=== PATIENT | female | born 1990 | race Caucasian/White ===

== ENCOUNTER 2019-06-02 00:20 | Inpatient (IN) | payer BC, OTHER ==
[2019-06-02] MEDS ORDERED: LIDOCAINE 0.5% (PF) 5 MG/ML (50 ML SDV) SQ PRN (00:47)
[2019-06-02] MEDS ORDERED: METHYLERGONOVINE 0.2 MG/ML 1 ML AMP IM PRN (00:47)
[2019-06-02] MEDS ORDERED: TERBUTALINE 1 MG/ML VIAL SQ PRN (00:47)
[2019-06-02] MEDS ORDERED: CARBOPROST TROMETHAMINE 250 MCG/ML 1 ML AMP IM PRN (00:47)
[2019-06-02] MEDS ORDERED: OXYTOCIN 10 UNIT/ML 1 ML VIAL IM PRN (00:47)
[2019-06-02] MEDS: LACTATED RINGERS 1,000 ML IV SCH ×4 (00:48→10:23)
[2019-06-02 00:55] VITALS: BMI 39.1
[2019-06-02] MEDS ORDERED: OXYTOCIN 30 UNITS/500 ML NS 30 UNIT in SALINE 1 500ML.BAG IV SCH (01:00)
[2019-06-02 01:26] LABS: Basophils # (A) 0.1 k/uL (0-0.2); Basophils % (A) 1 %; Eosinophils # (A) 0.1 k/uL (0-0.7); Eosinophils % (A) 1 %; HGB 11.3 gm/dL (11.4-16.0); Lymphocytes # (A) 4.6 k/uL (1.0-4.8); Lymphocytes % (A) 32 %; MCH 27.8 pg (25.0-35.0); MCHC 33.4 g/dL (31.0-37.0); MCV 83.3 fL (80.0-100.0); Mean Platelet Volume 7.2; Monocytes # (A) 0.8 k/uL (0-1.0); Monocytes % (A) 6 %; Neutrophils # (A) 8.7 k/uL (1.3-7.7); Neutrophils % (A) 60 %; Platelet Count 354 k/uL (150-450); RBC 4.08 m/uL (3.80-5.40); RDW 15.2 % (11.5-15.5); WBC 14.5 k/uL (3.8-10.6)
[2019-06-02] MEDS ORDERED: BUTORPHANOL 1 MG/ML 1 ML VIAL IV PRN (01:41)
[2019-06-02] MEDS ORDERED: CITRIC ACID-SODIUM CITRATE 15 ML CUP PO ONE (06:46)
--- NOTE | 2019-06-02 06:53 | P.HPOB ---
History of Present Illness H&P Date: 06/02/19 Chief Complaint: My water broke at 11:00 last night This is a 28-year-old white female 1 para 0 EDC 05/27/2019 at 40-6/7 weeks' gestation. Patient was scheduled for induction today for postdates , but came in early spontaneous labor with spontaneous amniorrhexis, clear fluid. Uterine contractions mild and irregular. Fetus active throughout the . She denied vaginal bleeding. Past medical history is significant for heterozygous MTHFR mutation. Past surgical history cholelithiasis, wisdom teeth extracted. Current medications vitamins daily, baby aspirin daily. ALLERGIES patient states are to erythromycin to which reports hives, as well as seasonal ALLERGIES. Family history significant for CHF, hypertension, diabetes, positive MTHFR mutation. Obstetric history significant for negative group B strep cultures. Blood type O positive. Pap smear, gonorrhea and chlamydia cultures, urine culture, hepatitis B surface antigen, all negative. One-hour Glucola elevated, 3 hour GTT within normal limits. Rubella status immune. On exam patient is 5 foot 4 inches, 228 pounds, blood pressure 121/64. General physical exam is within normal limits. Chest is clear in all beltrán. Extremities reveal no edema. Cervix is 4 cm dilated, 70% effaced, -2 station, vertex presentation, obvious fore bag noted. Rupture of this fore bag reveals clear fluid. Internal scalp lead is applied. heart rate is consistent with reactive NST. Impression: 40-6/7 weeks intrauterine , in early active labor. All signs reassuring. Plan: Oxytocin per hospital protocol. Close maternal and surveillance. Analgesic options reviewed with the patient, she is electing to proceed with epidural. Anesthesia staff aware. Anticipate normal spontaneous vaginal delivery. Review of Systems Constitutional: Reports as per HPI Past Medical History Additional Past Medical History / Comment(s): Heterozygous for MTHFR mutation History of Any Multi-Drug Resistant Organisms: None Reported Past Surgical History: Cholecystectomy Past Anesthesia/Blood Transfusion Reactions: No Reported Reaction Past Psychological History: No Psychological Hx Reported Smoking Status: Never smoker Past Alcohol Use History: None Reported Past Drug Use History: None Reported - Past Family History Mother Family Medical History: Diabetes Mellitus Father Family Medical History: Diabetes Mellitus Additional Family Medical History / Comment(s): arrythmia, pacemaker Medications and Allergies Home Medications Medication Instructions Recorded Confirmed Type Aspirin [[place] Aspirin EC] 81 mg PO DAILY 06/02/19 06/02/19 History Ferrous Sulfate [Feosol] 325 mg PO DAILY 06/02/19 06/02/19 History Pnv,Calcium 72/Iron/Folic Acid 1 each PO DAILY 06/02/19 06/02/19 History [ Plus Tablet] Allergies Allergy/AdvReac Type Severity Reaction Status Date / Time erythromycin base Allergy Intermediate Rash/Hives Verified 06/02/19 00:45 Exam Vital Signs Temp Pulse Resp BP Pulse Ox 06/02/19 00:47 97.1 F L 89 16 121/64 99 Intake and Output 06/01/19 06/01/19 06/02/19 14:59 22:59 06:59 Other: # Voids 2 Weight 103.419 kg See dictation under HPI Results Result Diagrams: 06/02/19 00:48 Abnormal Lab Results - Last 24 Hours (Table) 06/02/19 Range/Units 00:48 WBC 14.5 H (3.8-10.6) k/uL Hgb 11.3 L (11.4-16.0) gm/dL Neutrophils # 8.7 H (1.3-7.7) k/uL Assessment and Plan Assessment: 40-6/7 weeks intrauterine , early spontaneous labor. All signs reassuring. Plan: Analgesic options reviewed. Patient electing to proceed with epidural, anesthesia aware. Oxytocin per hospital protocol. Anticipate normal sponta neous vaginal delivery. Time with Patient: Less than 30
[2019-06-02] MEDS ORDERED: ROPIVACAINE 5MG/ML 20ML VIAL ONE (07:25)
[2019-06-02] MEDS ORDERED: fentaNYL (PF) 50 MCG/ML 5 ML AMP ONE (07:25)
[2019-06-02] MEDS ORDERED: SODIUM CHLORIDE 0.9% 100 ML BAG ONE (07:25)
[2019-06-02] MEDS ORDERED: LANOLIN CREAM 5 GM TUBE TOPICAL PRN (17:04)
[2019-06-02] MEDS ORDERED: diphenhydrAMINE 25 MG CAP PO PRN (17:04)
[2019-06-02] MEDS ORDERED: SIMETHICONE 80 MG CHEWABLE PO PRN (17:04)
[2019-06-02] MEDS ORDERED: BENZOCAINE/MENTHOL SPRAY 1 GM/SPRAY AEROSOL TOPICAL PRN (17:04)
[2019-06-02] MEDS ORDERED: diphenhydrAMINE 50 MG CAP PO PRN (17:04)
[2019-06-02] MEDS ORDERED: WITCH HAZEL 1 EACH MED..PAD TOPICAL PRN (17:04)
[2019-06-02] MEDS ORDERED: ZOLPIDEM 5 MG TAB PO PRN (17:04)
[2019-06-02] MEDS ORDERED: HYDROCORTISONE 2.5% RECTAL CREAM 30 GM TUBE RECTAL PRN (17:04)
[2019-06-02] MEDS ORDERED: diphenhydrAMINE 50 MG/ML 1 ML VIAL IVP PRN ×2 (17:04)
--- NOTE | 2019-06-02 17:04 | P.PROBDLV ---
Vaginal Delivery Note - . Vaginal Delivery Note: This is a 28-year-old white female 1 para 0 EDC 05/27/2019 at 40-6/7 weeks' gestation. Patient presented with spontaneous amniorrhexis which occurred at home, clear fluid. She was originally scheduled for induction due to postdates . Cervix on admission was 3 cm dilated. Rubella status immune. Blood type O positive. Group B strep cultures negative. Positive heterozous for MTHFR. Please see dictated history and physical for details. Oxytocin was started and titrated per hospital protocol. Epidural was placed per the patient's request. She progressed through the first stage of labor and ultimately became completely dilated. Good station was noted in the second stage of labor. heart rate did change baseline to the 160s, with occasional late decelerations. However, overall excellent txzh-en-elxd variability was noted and again good progress was being made in the second stage of labor. Perineal body was prepped and draped in usual sterile fashion. 's head delivered occiput anterior and restituted accordingly. There was a nuchal cord 1 that was reduced on the perineal body. The left or anterior shoulder was delivered from underneath the pubic symphysis at which time the oropharynx, nasopharynx, and external nares were bulb suctioned. Patient was officially delivered of a liveborn female infant at 1634 hours. Umbilical cord was doubly clamped and ligated, she was handed to waiting nurses for evaluation where scores of 8 and 9 at one and 5 minutes respectively were given. At this time the fundus is massaged. The placenta delivered spontaneously, it was inspected and noted to be intact with trivascular cord at 1637 hours. Infant weighed 6 lbs. 13 oz. or 3090 g. The perineal body, cervix, vagina, periurethral and perirectal areas are all carefully inspected. There is a right labial laceration, shallow and first-degree, repaired with 3-0 Vicryl in a running fashion. Methergine was given for her initial brisk bleeding, excellent and immediate results are noted. Total estimated blood loss 300 mL's. All sponge needle and enhancement counts are correct at the end of the procedure. Patient and her family are allowed to begin the bonding experience in the LDR.
[2019-06-02] MEDS ORDERED: OXYTOCIN 20 UNITS/1000 ML NS 1,000 ML IV SCH (17:15)
[2019-06-02] MEDS: IBUPROFEN 600 MG TAB PO PRN (17:40)
[2019-06-02] MEDS: SENNOSIDES-DOCUSATE SODIUM 1 EACH TAB PO SCH (19:54)
[2019-06-02] MEDS: ACETAMINOPHEN TAB 325 MG TAB PO PRN (19:54)
[2019-06-03 07:15] LABS: Anisocytosis Slight; Basophils # (A) 0.1 k/uL (0-0.2); Basophils % (A) 0 %; Eosinophils # (A) 0.1 k/uL (0-0.7); Eosinophils % (A) 1 %; HCT 25.7 % (34.0-46.0); Lymphocytes # (A) 5.1 k/uL (1.0-4.8); Lymphocytes % (A) 27 %; MCH 28.3 pg (25.0-35.0); MCHC 33.2 g/dL (31.0-37.0); MCV 85.4 fL (80.0-100.0); Mean Platelet Volume 7.2; Monocytes # (A) 0.7 k/uL (0-1.0); Monocytes % (A) 4 %; Neutrophils # (A) 12.9 k/uL (1.3-7.7); Neutrophils % (A) 67 %; Platelet Count 300 k/uL (150-450); RDW 16.3 % (11.5-15.5); WBC 19.2 k/uL (3.8-10.6)
[2019-06-03 07:17] LABS: HGB 8.5 gm/dL (11.4-16.0)
[2019-06-03] MEDS: IBUPROFEN 600 MG TAB PO PRN ×2 (07:35→22:42)
[2019-06-03] MEDS: SENNOSIDES-DOCUSATE SODIUM 1 EACH TAB PO SCH ×2 (07:36→20:07)
--- NOTE | 2019-06-03 07:43 | P.DS ---
Providers Date of admission: 06/02/19 00:20 Expected date of discharge: 06/03/19 Attending physician: Cecy Burnette Primary care physician: Stated None Hospital Course: This is a 28-year-old white female 1 para 0 EDC 05/27/2019 at 40-6/7 weeks' gestation. Patient presented for induction for postdates with favorable cervix. She actually presented in active spontaneous labor, with spontaneous amniorrhexis at home, clear fluid, at 2200 hours. is remarkable for blood type O+, rubella status immune, group B strep cultures negative. Patient does have heterozygous MTHFR, is on a baby aspirin daily and has done well. Please see my admitting history and physical for details. Oxytocin was started and titrated per hospital protocol. Epidural was placed per patient's request. She became completely dilated and began the second stage of labor at that time. heart rate did change in baseline, late decelerations were noted per the end of the second stage, however good maternal expulsive efforts were noted and delivery was imminent. Patient went on to deliver a liveborn female with scores of 8 and 9 at one and 5 minutes respectively. There was a nuchal cord 1 that was reduced. The was a small first-degree right labial laceration that was easily repaired, and an estimated blood loss of 300 mL's. Infant weighed 6 lbs. 13 oz. or 3090 g. Please see dictated delivery note for details. This morning the patient and her are both doing well. The patient is voiding, and bleeding, passing flatus without difficulty. Vital signs are stable and she is afebrile. Fundus is firm and in the midline, symmetric and 18 week size. Extremities are negative for edema. Chest is clear in all beltrán. Breast-feeding is going well. I have provided her with a prescription for a heather ast pump. Patient will follow-up with me in the office in 6 weeks. She is judged to be in very good condition for discharge home. I have reminded her no intercourse, tampons or douching. She will use [id number] Advil, Motrin, or Aleve as needed for pain. She will call me with any fevers shakes or chills, foul smelling or copious lochia, with the passage of large blood clots, with any pain not alleviated by [id number] products, or indeed with any concerns. Patient Condition at Discharge: Good Plan - Discharge Summary Discharge Rx Participant: No New Discharge Prescriptions: No Action Ferrous Sulfate [Feosol] 325 mg PO DAILY Pnv,Calcium 72/Iron/Folic Acid [ Plus Tablet] 1 each PO DAILY Aspirin [[place] Aspirin EC] 81 mg PO DAILY Discharge Medication List Aspirin [[place] Aspirin EC] 81 mg PO DAILY 06/02/19 [History] Ferrous Sulfate [Feosol] 325 mg PO DAILY 06/02/19 [History] Pnv,Calcium 72/Iron/Folic Acid [ Plus Tablet] 1 each PO DAILY 06/02/19 [History] Follow up Appointment(s)/Referral(s): Cecy Burnette MD [STAFF PHYSICIAN] - 6 Weeks
[2019-06-03] MEDS: ACETAMINOPHEN TAB 325 MG TAB PO PRN (12:13)
[2019-06-04] MEDS: IBUPROFEN 600 MG TAB PO PRN (08:14)
[2019-06-04] MEDS: SENNOSIDES-DOCUSATE SODIUM 1 EACH TAB PO SCH (08:14)
[2019-06-04 09:36] VITALS: BP 108/59; PULSE 95; RESP 20; TEMP 98.3
== END 2019-06-04 14:00 | disposition home or self-care (01) | DRG 807 ==
LOC: 4FBP 00:20
PROVIDERS: ADMIT Obstetrics & Gynecology; ATTEND Obstetrics & Gynecology
PROC: 10E0XZZ Delivery of Products of Conception, External Approach (ICD-10-PCS; principal; 2019-06-02)
PROC: 0HQ9XZZ Repair Perineum Skin, External Approach (ICD-10-PCS; 2019-06-02)
PROC: 00HU33Z Insertion of Infusion Device into Spinal Canal, Percutaneous Approach (ICD-10-PCS; 2019-06-02)
PROC: 3E0R3BZ Introduction of Anesthetic Agent into Spinal Canal, Percutaneous Approach (ICD-10-PCS; 2019-06-02)
DX: O48.0 Post-term pregnancy (principal); Z37.0 Single live birth; O69.81X0 Labor and delivery complicated by cord around neck, without compression, not applicable or unspecified; O70.0 First degree perineal laceration during delivery; O76 Abnormality in fetal heart rate and rhythm complicating labor and delivery; O99.52 Diseases of the respiratory system complicating childbirth; J30.2 Other seasonal allergic rhinitis; Z15.89 Genetic susceptibility to other disease; Z3A.40 40 weeks gestation of pregnancy; Z79.82 Long term (current) use of aspirin; Z90.49 Acquired absence of other specified parts of digestive tract; Z88.1 Allergy status to other antibiotic agents; Z82.49 Family history of ischemic heart disease and other diseases of the circulatory system; Z83.3 Family history of diabetes mellitus
CPT/HCPCS: 85025; 86850; 86900; 86901